=== PATIENT | female | born 2000 | race Two or more races ===

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

== ENCOUNTER → 2022-05-13 | Outpatient (CLI) | payer BC | END | disposition home or self-care (01) | LOC: LAB 16:08 | PROVIDERS: ATTEND Nurse Practitioner Family | DX: N39.0 Urinary tract infection, site not specified (principal) | CPT/HCPCS: 87086 ==

== ENCOUNTER → 2022-05-13 | Emergency (ER) | payer BC ==
[2022-05-14 06:20] LABS: Urine Bacteria FEW /hpf (None Seen); Urine Blood Negative /uL (Negative); Urine Specific Gravity 1.013 (1.001-1.035); Urine WBC 2 /hpf (0 - 5)
== END | disposition left against medical advice (07) ==
LOC: ER 21:53
DX: R10.9 Unspecified abdominal pain (principal); R11.2 Nausea with vomiting, unspecified; Z53.21 Procedure and treatment not carried out due to patient leaving prior to being seen by health care provider
CPT/HCPCS: 81001